=== PATIENT | female | born 1975 | race Caucasian/White ===

== ENCOUNTER 2025-04-16 14:24 | Outpatient (REF) | payer MEDICARE, MEDICAID, SELFPAY ==
[2025-04-16 16:48] LABS: Alanine Aminotransferase 16 U/L (0-31); Albumin Level 4.8 g/dL (3.5-5.0); Alkaline Phosphatase 93 U/L (39-117); Anion Gap 15 (12-20); Aspartate Amino Transferase 17 U/L (5-31); Blood Urea Nitrogen 21 mg/dL (9-16); Calcium 9.6 mg/dL (8.4-10.2); Carbon Dioxide 23 mmol/L (22-29); Chloride 107 mmol/L (96-108); Estimated Glomerular Filt Rate > 60; Potassium 3.6 mmol/L (3.3-5.1); Sodium 141 mmol/L (135-145); Total Protein 7.3 g/dL (6.5-8.0)
[2025-04-17 18:44] LABS: Lyme Abs Screen <0.90 index
[2025-04-23 15:59] LABS: Anti Nuclear Antibody Pattern Nuclear, Homogeneous; Anti Nuclear Antibody Screen POSITIVE (NEGATIVE); Anti Nuclear Antibody Titer 1:80 titer
== END 2025-04-16 14:25 | disposition home or self-care (01) ==
LOC: HO.LAB 14:24
PROVIDERS: PCP Internal Medicine; Visit Provider Psychiatry & Neurology Neurology
DX: G43.019 Migraine without aura, intractable, without status migrainosus (principal); G40.909 Epilepsy, unspecified, not intractable, without status epilepticus; F32.A Depression, unspecified; F41.9 Anxiety disorder, unspecified; M79.18 Myalgia, other site; Z79.899 Other long term (current) drug therapy
CPT/HCPCS: 36415; 80048; 80076; 85652; 86038; 86039; 86431; 86617; 86618; 99202

== ENCOUNTER 2025-04-16 14:24 | Outpatient (AMB) | payer MEDICARE, MEDICAID, SELFPAY ==
--- OUTSIDE RECORDS SUMMARY | 2025-01-25 10:40 | XMS_ITS ---
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 :1975 A ge:49 Y S ex:Female Date:01/25/2025 Address:[address] [place] [address] [id number] Pcp:STAR CROW DO Subjective: * Chief Complaints: * 1 . 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 * Medical History: U nspecified abnormal cytological findings in specimens from cervix uteri, Major depressive disorder, single episode, unspecified, Fibromyalgia, Atypical squamous cells of undetermined significance on cytologic smear of cervix (ASC-US), Cervical high risk human papillomavirus (HPV) DNA test positive, Female infertility, unspecified, Secondary amenorrhea, Other specified irregular menstruation, Unspecified menopausal and perimenopausal disorder, Menopausal and female climacteric states, Hyperprolactinemia. 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 S [...] Electronic signature of Max Ghosh MD on 04/16/2025 at 03:06 PM EDT Sign off status: Pending * Appointment Provider: Joyce Ghosh M.D. Date: 0 01/25/2025 Generated for Tony johnson/Kathe/Alexander on: 0 04/16/2025 03:06 PM EDT
--- NOTE | 2025-04-16 14:26 | A.OFFVIS_ITS ---
Vital Signs 04/16/25 14:42 Height 5 ft 1 in Weight 150 lb BMI 28.3 Intake Visit Reasons: Migraine Allergies No Known Allergies Allergy (Verified 04/11/25 08:59) Medication List - Last Reconciled 04/16/25 by Negrito Anders MD dextroamphetamine-amphetamine 20 mg (Adderall) 20 mg PO BID lorazepam 0.5 - 1 mg PO TID PRN tizanidine (Zanaflex) 4 mg PO BEDTIME PRN HPI Comments Details: 49 years old right-handed woman with chronic depression and anxiety disorder, diagnosis of fibromyalgia and myofascial pain syndrome, chronic fatigue, and chronic migraine headaches treated with Botox injection. She said that she had tried multiple type of medical treatments in the past and they did not work. For long many years she has been using this treatment and stated that this has significantly improved her quality of life. Headaches still happened few times a month and lasted for few hours at a time. Pain was in front or in the back or all around the head, pressure type, associated with nausea and sometime with vomiting. Her botox was due now. She also reported having episodes when suddenly she would lose strength in her legs and speech would become slurred. She would lose control of her hands and lose feeling of ground underneath her. [facility] Medical History (Updated 04/16/25 @ 15:01 by Negrito Anders MD) Trapezius muscle spasm Chronic fatigue Impaired fasting glucose Rosacea Fibromyalgia Chronic depression Migraine Review of Systems Const Details: Constitutional:?No fever, chills, weight loss, or night sweats. Difficulty sleeping and teeth grinding. Fatigue. HEENT:?No hearing loss, nasal congestion, sore throat. Cardiovascular:?No chest pain, palpitations, orthopnea, PND, or leg swelling. Respiratory:?No cough, shortness of breath, wheezing, or hemoptysis. Gastrointestinal:?No nausea, vomiting, abdominal pain, diarrhea, or constipation. Genitourinary:?No dysuria, frequency, incontinence, or hematuria. Musculoskeletal:?c/o muscle and joint pain and swelling Neurological:?c/o headaches and blurred vision Psychiatric:?c/o nervousness, depression, and stress Endocrine:?No heat/cold intolerance, polydipsia, polyuria, or hair/skin changes. Hematologic/Lymphatic:?No easy bruising, bleeding, or lymphadenopathy. Integumentary (Skin):?No rash, lesions, itching, or color changes. Allergic/Immunologic:?No seasonal allergies, hives, or recurrent infections. Physical Exam Neuro Other: Mental Status: Alert and oriented to person, place, and time. Normal attention. Normal spontaneous speech, fluency, and comprehension. No obvious issues with mood and memory. Affect is appropriate. Cranial Nerves: CN II: Visual ley full to confrontation, visual acuity intact. CN III, IV, : Pupils equal, round, reactive to light and accommodation. Extraocular movements are normal. CN V: Facial sensation is normal. CN VII: Facial movements symmetrical. CN VIII: Hearing intact to bedside conversation is normal. CN IX, X: Palate elevates symmetrically. CN XI: Shoulder shrug and head turn symmetrical. CN XII: Tongue midline without atrophy or fasciculations. Motor: Bulk and tone normal in all extremities. No significant muscle weakness in arms and legs. No drift. Reflexes: Deep tendon reflexes 2+ and symmetric. Plantar response down-going bilaterally. Coordination: Uysrrn-yw-jjok and jbyj-wo-hwwh testing normal. No dysmetria. Gait and Station: No obvious gait abnormality. No ataxia or instability. Extrapyramidal: Full facial expressions and blinking. No rigidity. Movements are appropriate with no tremor or abnormality. Speech: Normal; no dysarthria or tremor. Assessment & Plan Assessment & Plan (1) Migraine without aura: Comment: Meds tried: Amitriptyline, gabapentin, venlafaxine, Topiramate, Sumatriptan Code(s): G43.009 - Migraine without aura, not intractable, without status migrainosus Category: Medical Qualifiers: Status migrainosus presence: without status migrainosus Intractability: intractable Qualified Code(s): G43.019 - Migraine without aura, intractable, without status migrainosus (2) Seizure disorder: Code(s): G40.909 - Epilepsy, unspecified, not intractable, without status epilepticus Category: Medical Plan Impression: a: Chronic intractable migraine w/o aura headaches treated with Botox b: Possible seizure do Rec: a: Botox 200 IU every 3 m. We can try to obtain this but if a PA is required, I would need her past records to make a case of this treatment b: EEG Orders: Orders EEG electroencephalogram Today G40.909 - Epilepsy, unspecified, not intractable, without status epilepticus Rheumatoid Factor Today G40.909 - Epilepsy, unspecified, not intractable, without status epilepticus Basic Metabolic Panel Today G43.019 - Migraine without aura, intractable, without status migrainosus AMB Botulinum toxin Injection Today G43.019 - Migraine without aura, intractable, without status migrainosus Erythrocyte Sedimentation Rate Today G40.909 - Epilepsy, unspecified, not intractable, without status epilepticus JOSEFINA Reflex Titer and Pattern Today G43.019 - Migraine without aura, intractable, without status migrainosus Liver Panel Today G40.909 - Epilepsy, unspecified, not intractable, without status epilepticus, G43.019 - Migraine without aura, intractable, without status migrainosus Lyme IgG/IgM w/reflex to WB Today G40.909 - Epilepsy, unspecified, not intractable, without status epilepticus, G43.019 - Migraine without aura, intractable, without status migrainosus Medications: New onabotulinumtoxinA 200 units IM .every 3 months 1 ea 0RF migraine headache G43.019 - Migraine without aura, intractable, without status migrainosus Coding Level of Care Code Tele New Pt Level 5 (34342) Diagnoses Intractable migraine without aura and without status migrainosus G43.019 Status migrainosus presence: without status migrainosus Intractability: intractable Seizure disorder G40.90
[2025-04-16 14:42] VITALS: BMI 28.3
--- OUTSIDE RECORDS SUMMARY | 2025-04-16 15:06 | XMS_ITS | Data Portability ---
Author Organization [facility], [facility] Address [address] [facility] [place] [address] Care Team Providers Care Tile Professional Name Role Phone STAR CROW Referring Provider Unavailable STAR CROW Primary Care Provider Assessment Encounter Date Assessment Date Assessment LastModified by Organization Details LastModified Time 08/10/2024 08/10/2024 IMPRESSION: Migraine and significant shoulder tension, both significantly helped by Botox. >>>>>>>>>>>>Novem 2023 Medications per patient: Clonazepam 1 mg, tizanidine 4 mg, duloxetine 60 mg, Adderall 15 mg, eyedrops, magnesium, Advil as needed, vitamin for nutrition. She would like me to take over Botox injection administration. I will be happy to do this. Chart note from December is sufficiently clear so that I should be able to roughly recreate the injection amount and pattern that has provided benefit. This may take two or three trials to optimize. She understands as it did take several trials to optimize as she switched from her first neurologist to her most recent neurologist who just retired. She would also like me to take over her tizanidine that was prescribed by her previous neurologist. As Botox has been wearing off, the tizanidine 4 mg has not been helping sufficiently. She wonders whether she can use 8 mg. This is certainly within the maximum single dose limit, but with every increase of tizanidine, there should be rechecking of liver function. She mentions that her liver function was fine at a recent check by primary care. I suggest that I would take over the tizanidine prescription from her previous neurologist and allow 8 mg at a single dose if she agrees to work with primary care to have liver function rechecked. She agrees to this. >>>>>>>>>>>> PLAN Nati Zambrano August 10, 2024 Tizanidine: One or 2 tablets every 8 hours, maximum 4 tablets/day Follow-up for Botox: 200 units for painful muscle spasm triggering migraine. [email or web address] Not available 08/10/2024 18:15:54 12/05/2024 12/05/2024 IMPRESSION: Migraine and significant shoulder tension, both significantly helped by Botox. -- December 05, 2024 Botox #1 benefit: Three relatively short migraines per month; migraine breakthrough medication not optimized. >>>>>>>>>>>>December 05, 2024 I offered sample of Nurtec for migraine breakthrough. If this works, she will bring the name of the second and/or third triptan she tried after failure of sumatriptan. With at least two failed triptans, Nurtec is often approved by insurance. I offered physical therapy to advise pathway for help with her shoulder stiffness as Botox and even Botox increase by previous neurologist has not helped that, despite helping her headaches. She accepted. >>>>>>>>>>>>Novem 2023 Medications per patient, August 10, 2024 : Clonazepam 1 mg, tizanidine 4 mg, duloxetine 60 mg, Adderall 15 mg, eyedrops, magnesium, Advil as needed, vitamin for nutrition. She would like me to take over Botox injection administration. I will be happy to do this. Chart note from December is sufficiently clear so that I should be able to roughly recreate the injection amount and pattern that has provided benefit. This may take two or three trials to optimize. She understands as it did take several trials to optimize as she switched from her first neurologist to her most recent neurologist who just retired. She would also like me to take over her tizanidine that was prescribed by her previous neurologist. As Botox has been wearing off, the tizanidine 4 mg has not been helping sufficiently. She wonders whether she can use 8 mg. This is certainly within the maximum single dose limit, but with every increase of tizanidine, there should be rechecking of liver function. She mentions that her liver function was fine at a recent check by primary care. I suggest that I would take over the tizanidine prescription from her previous neurologist and allow 8 mg at a single dose if she agrees to work with primary care to have liver function rechecked. She agrees to this. >>>>>>>>>>>> PLAN Nati Zambrano December 05, 2024 Physical therapy for bilateral shoulder stiffness residual after Botox injections which have helped her migraines significantly, but has not helped the stiffness which worsens a little for 3 weeks after Botox but which is there prominently anyway Botox without botox. Botox increase has not helped. There is also fibromyalgia. Advise please whether stiffness relates to a myofascial trigger point not being injected (see phot in chart on locations), to fibromyalgia, or to another muscular issue. Molly Henley MBA, PT [address] [address] [email or web address] We will send a referral to the physical therapist for physical therapy. It is your responsibility to make the initial phone call to the above number to set up an initial appointment CONTINUE NEEDED: Tizanidine: One or 2 tablets every 8 hours, maximum 4 tablets/day Follow-up for Botox: 200 units for painful muscle spasm triggering migraine, 91 days pfter previous. [email or web address] Not available 12/05/2024 17:03:55 Plan of Treatment Reminders Order Date Submit Date Provider Last Modified By Organization Details Last Modified Time Details Appointments FOLLOW UP EXT 2024 01:30P Hannah Parks MD PhD Not available Not available Not available BOTOX 2024 01:00P Hannah Parks MD PhD Not available Not available Not available Lab None recorded. Referral neurologi c physical therapist referral - Physical therapy for bilateral shoulder stiffness residual after Botox injection s which have helped her migraines significa ntly, but has not helped the stiffness which worsens a little for 3 weeks after Botox but which is there prominent ly anyway Botox without botox. Botox increase has not helped. There is also fibromyal corinne. Advise please whether stiffness relates to a myofascia l trigger point not being injected (see phot in chart on locations ), to fibromyal corinne, or to another muscular issue. 2024 025 LAURENCE Barnes Lory PT, [address] [place], [address], 01/02/2025 04:18:13 Procedures None recorded. Surgeries None recorded. Imaging None recorded. Medication Orders tizanidin e 4 mg tablet 2023 024 [id number], [address] [place], [address], 08/10/2024 14:00:54 Patient TargetsNo targets recorded. Patient Instructions Encounter Date Encounter Id Patient Instructions Last Modified By Organization Details Last Modified Time 08/10/2024 [id number] Discussion acros s issues of diagnoses and management and same day associated chart review and management greater than 50% greater than 60 minutes [email or web address] Not available 08/10/2024 14:14:58 12/05/2024 [id number] Discussion acros s issues of diagnoses and management and same day associated chart review and management greater than 50% greater than 30 minutes Chronic condition with exacerbation; prescription medication management [email or web address] Not available 12/05/2024 17:04:13 Reason for Referral Physical therapy for rosamaria conrad shoulder stiffness residual after Botox injections which have helped her migraines significantly, but has not helped the stiffness which worsens a little for 3 weeks after Botox but which is there prominently anyway Botox without botox. Botox increase has not helped. There is also fibromyalgia. Advise please whether stiffness relates to a myofascial trigger point not being injected (see phot in chart on locations), to fibromyalgia, or to another muscular issue. Referring Physician: Perico Parks, Neurology, Encounter Date: 12/05/2024 Procedures Surgical History Date Name Laterality Status Provider Name and Address Organization Details Recorded Time botulinum injection completed Perico Parks MD [address] [place] [address] [place], [id number], [facility] 01/03/2025 14:52:26 DATA REVIEW completed Perico Parks MD [address] [place] [address] [place], [address], [facility] 12/05/2024 16:39:53 5 botulinum injection completed Perico Parks MD [address] [place] [address] [place], [address], [facility] 10/04/2024 11:17:02 4 DATA REVIEW completed Perico Parks MD [address] [place] [address] [place], [address], [facility] 08/10/2024 14:11:16 Imaging Results None recorded. Procedure Notes None recorded. Medical Equipment None Reported. Allergies No known drug allergies Medications Name Sig Start Date Stop Date Status Note LastModified by Organization Details LastModified Time tizanidine 4 mg tablet TAKE 1 TABLET OR 2 TABLETS EVERY 8 HOURS, MAXIMUM 4 TABLETS/DA Y active Not Available Not Available No t Available clonazepam 1 mg tablet TAKE 1 TABLET BY MOUTH 3 TIMES A DAY NEEDED - *REPLACING LORAZEPAM active Not Available Not Available No t Available bupropion HCl SR 100 mg tablet,12 hr sustained-rel ease TAKE 1 TABLET BY MOUTH EVERY DAY IN THE MORNING active Not Available Not Available No t Available prednisolone acetate 1 % eye drops,suspens ion INSTILL 1 DROP INTO BOTH EYES FOUR TIMES A DAY SHAKE WELL active Not Available Not Available N ot Available dextroampheta mine-amphetam ine 15 mg tablet TAKE 1 TABLET BY MOUTH TWICE A DAY active Not Available Not Available No t Available norethindrone acetate 5 mg tablet TAKE 1 TABLET BY MOUTH EVERY DAY FOR 10 DAYS EVERY 3 MONTHS active Not Available Not Available No t Available lorazepam 1 mg tablet TAKE 1/2-1 TABLET 3 TIMES DAILY NEEDED active Not Available Not Available No t Available hydrocortison e 2.5 % topical ointment APPLY DAILY TO SKIN EVERY DAY FOR 14 DAYS active Not Available Not Available No t Available ondansetron 4 mg disintegratin g tablet TAKE 1 TABLET BY MOUTH EVERY 6 HOURS NEEDED FOR NAUSEA AND VOMITING FOR 5 DAYS active Not Available Not Available N ot Available naproxen 500 mg tablet TAKE 1 TABLET BY MOUTH EVERY 12 HOURS WITH FOOD OR MILK NEEDED FOR 14 DAYS active Not Available Not Available No t Available bupropion HCl SR 200 mg tablet,12 hr sustained-rel ease TAKE 1 TABLET BY MOUTH EVERY MORNING active Not Available Not Available No t Available bupropion HCl XL 150 mg 24 hr tablet, extended release TAKE 1 TABLET BY MOUTH EVERY DAY IN THE MORNING *INCREASED DOSE* active Not Available Not Available No t Available nitrofurantoi n monohydrate/m acrocrystals 100 mg capsule TAKE 1 CAPSULE BY MOUTH EVERY 12 HOURS WITH A MEAL/FOOD FOR 5 DAYS. active Not Available Not Available No t Available duloxetine 20 mg capsule,delay ed release TAKE 2 CAPSULES BY MOUTH EVERY MORNING active Not Available Not Available No t Available duloxetine 60 mg capsule,delay ed release TAKE 1 CAPSULE BY MOUTH EVERY MORNING active Not Available Not Available No t Available tizanidine active Not Available Not Av ailable Not Available Advil active Not Available Not Availa ble Not Available clonazepam active Not Available Not Av ailable Not Available multivitamin active Not Available Not Available Not Available Adderall active Not Available Not Avai lable Not Available duloxetine active Not Available Not Av ailable Not Available magnesium glycinate active Not Available Not Available No t Available Xiidra 5 % eye drops in a dropperette INSTILL 1 DROP INTO BOTH EYES TWICE A DAY active Not Available Not Available No t Available Xiidra active Not Available Not Availa ble Not Available Vitals Date Recorded Body height Body mass index (BMI) Body weight Respiratory rate Provider Name and Address Organization Details Last Updated DateTime 08/10/2024 152.4 cm 30.3 kg/m2 11778.82 g 12 /min [place] Culver [facility] 08/10/2024 13:19:20 Social History Question Answer Notes LastModified by [employer] Details LastModified Time Tobacco Smoking Status Current Every Day Smoker [place] [facility] 08/10/2024 13:22:30 What Is Your Level Of Caffeine Consumption? Occasional Information not available 08/10/2024 What Is The Highest Grade Or Level Of School You Have Completed Or The Highest Degree You Have Received? [id number] Information not available 08/10/2024 Which Of Your Hands Is Dominant? Right Information not available 08/10/2024 How Much Tobacco Do You Smoke? 0.5 PPD Information not available 08/10/2024 Sex: Unknown Functional Status Question Answer Note LastModified by [employer] Details LastModified Time What is your level of alcohol consumption? Occasional Information not available 08/10/2024 Mental Status None recorded. Family History Relationship Description Onset Age of this Age Resolved Age Notes LastModified by Organization Details LastModified Time Unspecified Relation Alzheimer's disease Not available 2023 13:19:35 Unspecified Relation Diabetes mellitus Not available 2023 13:19:40 Medical History Condition Response Claustrophobia N Head Trauma/Injury N Hospitalizations N High Blood Pressure or Hypertension N Thyroid Problems N Depression Y Brain Tumors N Lung Disease N COPD or emphysema N Encephalitis N PTSD N Vitamin B12 deficiency N Heart Attack ([place]) N Spine Problems N Obstructive Sleep Apnea N Alcoholism N Diabetes N Autoimmune disease N Bleeding Disorder N Arthritis N Cerebral Palsy N Tuberculosis N Developmental Problems N Neck Problems N Cancer N Back Problems N Stroke N Asthma N Heartburn, acid reflux, GERD N Vitamin D Deficiency N Epilepsy/Seizures N Bipolar Disorder N Sleep Disorder N Aneurysm N Hepatitis N Liver Disease N Heart Disease N Fibromyalgia Y Headaches Y High Cholesterol or Hyperlipidemia N Osteoporosis N Kidney Disease N Gynecological HistoryNo gynecological history recorded. Obstetrics History GPAL:G 0 P 0 0 0 0 Past Encounters Encounter ID Performer Location Encounter Start Date Encounter Closed Date Diagnosis/Indication Diagnosis SNOMED-CT Code Diagnosis ICD10 Code Diagnosis Note [id number] Perico Parks MD [facility] [address] [place] [address] [place] [address] 08/10/2024 12:53:21 08/15/2024 15:16:08 Migraine with aura 1685383 G43.109 Dystonia 06330538 G24.3 Primary to rsion dystonia 95322937 G24.1 Bilateral hemifacial spasm 1785134276 5703936 G51.33 [id number] Perico Parks MD [facility] [address] [place] [address] [place] [address] 10/04/2024 09:57:24 10/04/2024 11:53:31 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 Dystonia 94253309 G24.3 Facial spasm 68898380 G5 1.33 [id number] Perico Parks MD [facility] [address] [place] [address] [place] [address] 12/05/2024 16:10:25 12/05/2024 17:31:34 Migraine with aura 9561227 G43.109 Dystonia 71550368 G24.3 Primary to rsion dystonia 17873196 G24.1 Bilateral hemifacial spasm 0065916949 8558952 G51.33 [id number] Perico Parks MD [facility] [address] [place] [address] [place] [address] 01/03/2025 13:54:50 01/03/2025 15:39:21 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 Dystonia 91464019 G24.3 Facial spasm 32212650 G5 1.33 Health Concerns Section Related Observation LastModified by Organization Detai ls LastModified Time None Recorded Concern Status LastModified by Organization Details LastModified Time None Recorded Advance Directives Directive None Recorded Payers Insurance Date Sequence Insurance Name Policy Number Policy Lyles Covered Member ID Lyles Member ID Guarantor Name 03/18/2025 1 [place] [employer] Nati Zambrano [id number] Nati Zambrano 03/19/2025 2 [place] [facility] Nati Zambrano [id number] Nati Zambrano OBGyn Episode No OBEpisode recorded.
--- OUTSIDE RECORDS SUMMARY | 2025-04-16 15:06 | XMS_ITS | Clinical Summary ---
Author Organization [address] [facility] Address [address] [place] [address] Phone Care Team Providers Care Food Sales Clerk Name Role Phone Zion Pizano DO Primary Care Provider [phone] Allergies No known active allergies Medications clonazePAM (KlonoPIN) 1 mg tablet TAKE 1 TABLET BY MOUTH 3 TIMES A DAY NEEDED - *REPLACING LORAZEPAM 5 Active amphetamine-dext roamphetamine (ADDERALL) 15 mg tablet Take 1 tablet (15 mg total) by mouth 2 (two) times a day. Max Daily Amount: 30 mg 5 Active tiZANidine (ZANAFLEX) 4 mg tablet TAKE 1 TABLET OR 2 TABLETS EVERY 8 HOURS, MAXIMUM 4 TABLETS/DAY 4 Active Xiidra 5 % dropperette Administer 1 drop into both eyes 2 (two) times a day. 4 Active Encounters Date Type Department Care Team Description 03/05/2025 3:45 PM EDT Consult General Surgery [facility] [address] [place] [address] Flynn Hdz, DO Supraclavicular mass (Primary Dx); Ganglion cyst; Other bursal cyst, left elbow from Last 3 Months Social History Tobacco Use Types Packs/Day Years Used Date Smoking Tobacco: Never Assessed Comments Unknown Sex and Gender Information Value Date Recorded Sex Assigned at Not on file Legal Sex Female 11:39 PM EST Gender Identity Not on file Sexual Orientation Not on file Last Filed Vital Signs Vital Sign Reading Time Taken Comments Blood Pressure 137/90 03/05/2025 3:49 PM EDT Pulse 111 03/05/2025 3:49 PM EDT Temperature - - Respiratory Rate - - Oxygen Saturation - - Inhaled Oxygen Concentration - - Weight 70.3 kg (155 lb) 03/05/2025 3:49 PM EDT Height 154.9 cm (5' 1 ) 03/05/2025 3:49 PM EDT Body Mass Index 29.29 03/05/2025 3:49 PM EDT Plan of Treatment Upcoming Encounters Date Type Department Care Team (Late st Contact Info) Description 04/17/2025 3:30 PM EDT Consult Orthopedic Surgery - [place] [address] [place] [address] Lisa Andrew PA [address] [place] [address] Health Maintenance Due Date Last Done Comments Breast Cancer Screening 1974 DTaP,Tdap,and Td Vaccines (1 - Tdap) 1993 Hepatitis B Vaccines (1 of 3 - 19+ 3-dose series) 1993 Cervical Cancer Screening: P ap Smear 1995 COVID-19 Vaccine ( - 2023-2 5 season) 2024 Pneumococcal Vaccine: 50+ Ye ars (1 of 1 - PCV) 2024 Zoster Vaccines (1 of 2) 2024 Colorectal Cancer Screening: Colonoscopy 07/25/2024 HIV Screening 07/25/2024 Hepatitis C Screening 07/25/2024 Medicare Annual Wellness Visit 07/25/2024 Social Influencers of Health Screening 07/25/2024 Depression Screening 09/20/2024 Influenza Vaccine (#1) 2025 HIB Vaccines Aged Out No longer eligi ble based on patient's age to complete this topic HPV Vaccines Aged Out No longer eligi ble based on patient's age to complete this topic Hepatitis A Vaccines Aged Out No long er eligible based on patient's age to complete this topic IPV Vaccines Aged Out No longer eligi ble based on patient's age to complete this topic MMR Vaccines Aged Out No longer eligi ble based on patient's age to complete this topic Meningococcal ACWY Vaccine Aged Out N o longer eligible based on patient's age to complete this topic Meningococcal B Vaccine Aged Out No l onger eligible based on patient's age to complete this topic RSV Immunization Patients Un erick 20 months Aged Out No longer eligible b ased on patient's age to complete this topic Varicella Vaccines Aged Out No longer eligible based on patient's age to complete this topic Insurance MEDICARE MEDICAID - [place] Care Teams Food Sales Clerk Relationship Specialty Start Date End Date Zion Pizano DO [address] [place] [phone] PCP - General Internal Medicine 07/25/24
== END 2025-04-16 15:15 | disposition home or self-care (01) ==
LOC: HO.HSM 14:24
PROVIDERS: PCP Internal Medicine; Visit Provider Psychiatry & Neurology Neurology
DX: G43.019 Migraine without aura, intractable, without status migrainosus (principal); G40.909 Epilepsy, unspecified, not intractable, without status epilepticus
CPT/HCPCS: 99204

== ENCOUNTER 2025-06-04 14:50 | Outpatient (REF) | payer MEDICARE, MEDICAID, SELFPAY ==
--- OUTSIDE RECORDS SUMMARY | 2025-01-25 10:40 | XMS_ITS ---
Author Organization [facility] [email or web address] [facility] Address [address] [place] [address] Care Team Providers Care Cold Header Name Role Phone STAR CROW DO Primary Care Provider Jaja Merida Unavailable [phone] REASON FOR VISIT Annual MANAGER ZONE Physical Social History Tobacco Use: Social History Observation Description Date Details (start date - stop date) Current Smoker NA - NA Sexual History Question Answer Notes Had sex in the past 12 months (vaginal, oral, or anal)? No AUDIT-C (Standard) Question Answer Notes Did you have a drink contain ing alcohol in the past year? Yes How often did you have a dri nk containing alcohol in the past year? Monthly or less (1 point) How many drinks did you have on a typical day when you were drinking in the past year? 1 or 2 drinks (0 point) How often did you have six o r more drinks on one occasion in the past year? Never (0 point) Points 1 Interpretation Negative Tobacco Control (Standard) Question Answer Notes Tobacco use: Current smoker How often do you smoke cigarettes? Every day How many cigarettes a day do you smoke? 6-10 Encounters Encounter Location Date Provider Diagnosis [email or web address] [address] [place] [address] 01/25/2025 Jaja Ghosh Plan Of Treatment Next Appt Details Provider Name:Jaja avalos, 07/05/2025 02:20:00 PM, [address], [facility] [address], [place], [address], Progress Notes * TEOFILO TOBIASDOB:1974 (49 yo F)Acc No.[id number]:01/25/2025 PROGRESS NOTES Patient: TEOFILO SINGH Appointment Provider: Joyce Ghosh M.D. :1975 A ge:49 Y S ex:Female Date:01/25/2025 Address:[address] [place] [address] [id number] Pcp:STAR CROW DO Subjective: * Chief Complaints: * 1 . Annual MANAGER ZONE Physical. * Medical History: U nspecified abnormal cytological findings in specimens from cervix uteri, Major depressive disorder, single episode, unspecified, Fibromyalgia, Atypical squamous cells of undetermined significance on cytologic smear of cervix (ASC-US), Cervical high risk human papillomavirus (HPV) DNA test positive, Female infertility, unspecified, Secondary amenorrhea, Other specified irregular menstruation, Unspecified menopausal and perimenopausal disorder, Menopausal and female climacteric states, Hyperprolactinemia. 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 S exual activity n ot currently sexually active. L ast Pap Smear: NIL, NEG HPV, 10/22/17 NIL, NEG HRHPV, 09/07/14, NEG HRHPV. M ammogram: < 50% density, 06/01/17, < 50% density, Right Breast Biopsy - Benign. A bnormal Pap Smear: H x of ASCUS, Pos HPV in 2008. L MP and menses . C olonoscopy 2 016. * OB History: T otal pregnancies 0 . * Social History: T obacco Use: T obacco Control (Standard) T obacco use: C urrent smoker H ow often do you smoke cigarettes? E very day H ow many cigarettes a day do you smoke? 6 -10 S exual History: S exual History H ad sex in the past 12 months (vaginal, oral, or anal)? N o Details of Sexual History A re you sexually active? N o D rugs/Alcohol: D rugs H ave you used drugs other than those for medical reasons in the past 12 months? N o M iscellaneous: C hildren: no. Domestic violence: no. Exercise: no. Home smoke detector use: yes. Living with: significant other. Marital status: single. Natural support system: yes. Occupation: Unemployed. Sexually active: no. D rug/Alcohol: A KARINE-C (Standard) D id you have a drink containing alcohol in the past year? Y es H ow often did you have a drink containing alcohol in the past year? M onthly or less (1 point) H ow many drinks did you have on a typical day when you were drinking in the past year? 1 or 2 drinks (0 point) H ow often did you have six or more drinks on one occasion in the past year? N ever (0 point) P oints 1 I nterpretation N egative Objective: * Vitals: Assessment: Plan: * Treatment: * Images: Billing Information: * Visit Code: * Procedure Codes: * Electronic signature of Max Ghosh MD on 06/04/2025 at 08:16 PM EDT Sign off status: Pending * Appointment Provider: Joyce Ghosh M.D. Date: 0 01/25/2025 Generated for Tony johnson/Kathe/Alexander on: 0 06/04/2025 08:16 PM EDT
--- NOTE | 2025-06-04 16:29 | EEG_ITS ---
Roomed Performed:?402 Reason: Epilepsy History: episodes when suddenly she would lose strength in her legs and speech would become slurred Medication: dextroamphetamine-amphetamine, lorazepam, tizanidine Technical description:? Photic stimulation: Completed Hyperventilation:?Completed Behavioral state: relaxed State of Consciousness: awake Skull defect: None Sedation: None Handedness: Right Duration of study:? 30min ? ? Description: This is a 16 channel EEG with an EKG lead. Patient is reported awake during the tracing. Background EEG rhythm is low amplitude fast with no obvious asymmetry or paroxysmal tendency. Photic stimulation does not produce any significant abnormality. Hyperventilation is similarly unremarkable. Cardiac lead does not reveal any significant abnormality. No sharp wave spikes or paroxysmal tendency noted. Impression: Unremarkable EEG. MTDD
--- OUTSIDE RECORDS SUMMARY | 2025-06-04 20:16 | XMS_ITS | Clinical Summary ---
Author Organization [facility] Address [address] [place] [address] Phone Care Team Providers Care Mining Consultant Name Role Phone Zion Pizano DO Primary Care Provider [phone] Allergies No known active allergies Medications clonazePAM [...] 2 (two) times a day. 4 Active Active Problems Problem Noted Date Diagnosed Date Fibromyalgia 05/29/2025 Chronic migraine without aur a without status migrainosus, not intractable 05/29/2025 Elbow mass, left 05/29/2025 Encounters Date Type Department Care Team Description 05/29/2025 3:00 PM EDT Office Visit Orthopedic Surgery [facility] [address] [place] [address] Mari Marquez MD Elbow mass, left (Primary Dx) 04/23/2025 9:48 AM EDT - 04/23/2025 11:59 PM EDT Hospital Encounter [facility] Ultrasound [address] [place] [address] Supraclavicular mass Discharge Disposition: Home or Self Care 04/23/2025 9:48 AM EDT - 04/23/2025 11:59 PM EDT Hospital Encounter [facility] Ultrasound [address] [place] [address] Ganglion cyst; Other bursal cyst, left elbow Discharge Disposition: Home or Self Care 04/17/2025 3:30 PM EDT Consult Orthopedic Surgery - [place] [address] [place] [address] Lisa Andrew PA Ganglion cyst 03/05/2025 3:45 PM EDT Consult General Surgery - [place] [address] [place] [address] Flynn Hdz, Supraclavicular mass (Primary Dx); Ganglion cyst; Other bursal cyst, left elbow from Last 3 Months Social History Tobacco Use Types Packs/Day Years Used Date Smoking Tobacco: Some Days Cigarettes 0.5 6.7 Started: 2018 Smokeless Tobacco: Never Tobacco Cessation:Ready to Q uit: Not Asked; Counseling Given: Not Answered Alcohol Use Standard Drinks/Week Comments Never 0 (1 standard drink = 0.6 oz pur e alcohol) Comments Unknown Sex and Gender Information Value Date Recorded Sex Assigned at Not on file Legal Sex Female 11:39 PM EST Gender Identity Not on file Sexual Orientation Not on file Obstetrics History Last Filed Vital Signs Vital Sign Reading Time Taken Comments Blood Pressure 137/90 03/05/2025 3:49 PM EDT Pulse 111 03/05/2025 3:49 PM EDT Temperature - - Respiratory Rate - - Oxygen Saturation - - Inhaled Oxygen Concentration - - Weight 70.3 kg (155 lb) 05/29/2025 3:09 PM EDT Height 154.9 cm (5' 1 ) 05/29/2025 3:09 PM EDT Body Mass Index 29.29 05/29/2025 3:09 PM EDT Plan of Treatment Upcoming Encounters Date Type Department Care Team (Latest Contact Info) Description 07/05/2025 1:00 PM EDT Hospital Encounter [facility] Main OR [address] [place] [phone] Mari Marquez MD [address] [place] [phone] 07/05/2025 1:00 PM EDT - 07/05/2025 2:[address] [facility] Main OR [address] [place] [address] Mari Marquez MD [address] [place] [phone] EXCISION MASS LEFT PROXIMAL ULNA [07291 (CPT )] 07/16/2025 1:15 PM EDT Office Visit Orthopedic Surgery [facility] [address] [place] [address] Lisa Andrew PA [address] [place] [phone] Scheduled Procedures Name Priority Associated Diagnoses Date/Ti me EXCISION MASS Elbow mass, left 07/05/2025 1:00 PM EDT Health Maintenance Due Date Last Done Comments Breast Cancer Screening 1974 DTaP,Tdap,and Td Vaccines (1 - Tdap) 1993 Hepatitis B Vaccines (1 of 3 - 19+ 3-dose series) 1993 Pneumococcal Vaccine: 50+ Ye ars (1 of 2 - PCV) 1993 Cervical Cancer Screening: P ap Smear 1995 Zoster Vaccines (1 of 2) 2024 Cholesterol Screening (Lipid Panel) 07/25/2024 Colorectal Cancer Screening: Colonoscopy 07/25/2024 HIV Screening 07/25/2024 Hepatitis C Screening 07/25/2024 Medicare Annual Wellness Visit 07/25/2024 Social Influencers of Health Screening 07/25/2024 Depression Screening 09/20/2024 COVID-19 Vaccine ( - 2023-2 5 season) 2025 Influenza Vaccine (#1) 2025 HIB Vaccines Aged [...] on patient's age to complete this topic Procedures Procedure Name Priority Date/Time Associated Diagnosis Comments US HEAD NECK SOFT TISSUE Routine 04/23/2025 10:12 AM EDT Supraclavicular mass US EXTREMITY NONVASCULAR LIMITED LEFT Routine 04/23/2025 10:11 AM EDT Ganglion cyst Other bursal cyst, left elbow from Last 3 Months Results * US Head Neck Soft Tissue (04/23/2025 10:12 AM EDT) Anatomical Region Laterality Modality Head and Neck Ultrasound 05/01/2025 8:11 AM EDT Impressions 05/01/2025 8:14 AM EDT Nonspecific altered echotexture without a discrete measurable mass. The area should be managed on the basis of the physical exam and history. This study does not exclude an aggressive process. -------- FINAL REPORT -------- Dictated By: Wily Ortiz Dictated Date: 05/01/2025 08:11 ET Assigned Physician: Wily Ortiz Reviewed and Electronically Signed By: Wily Ortiz Signed Date: 05/01/2025 08:14 ET Workstation ID: [id number] Transcribed By: Self Edit Transcribed Date: 05/01/2025 08:11 ET Narrative 05/01/2025 8:14 AM EDT EXAMINATION: US , SOFT TISSUES RIGHT SUPRACLAVICULAR REGION CLINICAL INFORMATION: Mass in the right supraclavicular region COMPARISON: None. TECHNIQUE: High-frequency linear transducer examination with attention to the area of clinical concern The area of clinical concern in the right supraclavicular region was examined with a high-frequency linear transducer. An area of palpable concern was targeted. FINDINGS: QUALITY: Adequate There is a subtle area of altered echotexture in the superficial tissues which attenuates sound and limits assessment of the deeper tissues. This appears to disrupt the deep fascial plane of the skin and precludes assessment of the deep muscular fascial planes or any underlying bony structures. This is difficult to quantify. Procedure Note Wily Ortiz MD - 05/01/2025 EXAMINATION: US , SOFT TISSUES RIGHT SUPRACLAVICULAR REGION CLINICAL INFORMATION: Mass in the right supraclavicular region COMPARISON: None. TECHNIQUE: High-frequency linear transducer examination with attention to the area ofclinical concern The area of clinical concern in the right supraclavicular region wasexamined with a high-frequency linear transducer. An area of palpableconcern was targeted. FINDINGS: QUALITY: Adequate There is a subtle area of altered echotexture in the superficial tissueswhich attenuates sound and limits assessment of the deeper tissues. Thisappears to disrupt the deep fascial plane of the skin and precludesassessment of the deep muscular fascial planes or any underlying bonystructures. This is difficult to quantify. IMPRESSION: Nonspecific altered echotexture without a discrete measurable mass. The area should be managed on the basis of the physical exam and history. This study does not exclude an aggressive process. -------- FINAL REPORT -------- Dictated By: Wily Ortiz Dictated Date: 05/01/2025 08:11 ET Assigned Physician: Wily Ortiz Reviewed and Electronically Signed By: Wily Ortiz Signed Date: 05/01/2025 08:14 ET Workstation ID: [id number] Transcribed By: Self Edit Transcribed Date: 05/01/2025 08:11 ET us Flynn Hdz DO IMG US PROCEDURES Final Result * US Extremity Nonvascular Limited Left (04/23/2025 10:11 AM EDT) Anatomical Region Laterality Modality Extremity Left Ultrasound 05/01/2025 8:05 AM EDT Impressions 05/01/2025 8:09 AM EDT There is a nonspecific oval soft tissue mass which may be between the skin and the cortex of the olecranon/proximal ulna. There is some internal color signal Correlate with this being in the region of the olecranon bursa. This may require tissue diagnosis. -------- FINAL REPORT -------- Dictated By: Wily Ortiz Dictated Date: 05/01/2025 08:05 ET Assigned Physician: Wily Ortiz Reviewed and Electronically Signed By: Wily Ortiz Signed Date: 05/01/2025 08:09 ET Workstation ID: [id number] Transcribed By: Self Edit Transcribed Date: 05/01/2025 08:05 ET Narrative 05/01/2025 8:09 AM EDT EXAMINATION: US , SOFT TISSUES LEFT ELBOW CLINICAL INFORMATION: Elbow mass. COMPARISON: None. TECHNIQUE: High-frequency linear transducer examination with attention to the area of clinical concern Soft tissue mass dorsally at the level of the elbow was examined with a high-frequency linear transducer. FINDINGS: QUALITY: Adequate There is a mass in the soft tissues dorsally at the level of the elbow. There is a hypoechoic fairly homogeneous oval mass with long axis parallel. This extends to the deep aspect of the skin. The interface with the dermis is sharply defined. There is an abrupt interface with the underlying bone cortex. There is posterior enhancement. There is some internal color signal. No evidence of invasion into adjacent or deeper tissues. 04/23/25-1.7 x 0.6 x 1.3 cm Procedure Note Wily Ortiz MD - 05/01/2025 EXAMINATION: US , SOFT TISSUES LEFT ELBOW CLINICAL INFORMATION: Elbow mass. COMPARISON: None. TECHNIQUE: High-frequency linear transducer examination with attention to the area ofclinical concern Soft tissue mass dorsally at the level of the elbow was examined with ahigh- frequency linear transducer. FINDINGS: QUALITY: Adequate There is a mass in the soft tissues dorsally at the level of the elbow. There is a hypoechoic fairly homogeneous oval mass with long axisparallel. This extends to the deep aspect of the skin. The interface withthe dermis is sharply defined. There is an abrupt interface with theunderlying bone cortex. There is posterior enhancement. There is someinternal color signal. No evidence of invasion into adjacent or deeper tissues. 04/23/25-1.7 x 0.6 x 1.3 cm IMPRESSION: There is a nonspecific oval soft tissue mass which may be between the skinand the cortex of the olecranon/proximal ulna. There is some internalcolor signal Correlate with this being in the region of the olecranon bursa. This may require tissue diagnosis. -------- FINAL REPORT -------- Dictated By: Wily Ortiz Dictated Date: 05/01/2025 08:05 ET Assigned Physician: Wily Ortiz Reviewed and Electronically Signed By: Wily Ortiz Signed Date: 05/01/2025 08:09 ET Workstation ID: [id number] Transcribed By: Self Edit Transcribed Date: 05/01/2025 08:05 ET us Flynn Hdz DO IMG US PROCEDURES Final Result from Last 3 Months Insurance MEDICARE MEDICAID - [place] Care Teams Mining Consultant Relationship Specialty Start Date End Date Zion Pizano DO [address] [place] [phone] PCP - General Internal Medicine 07/25/24
--- OUTSIDE RECORDS SUMMARY | 2025-06-04 20:16 | XMS_ITS | Patient Health Record ---
Author Organization [facility] Address [address] [place] [address] Care Team Providers Care Dramatic Teacher Name Role Phone MIGNON WELLS STAR Primary Care Provider Jaja Merida Unavailable [phone] Allergies No Known Allergies Reason For Referral No Information Medications Medication SIG (Take, Route, Frequency, Duration) Notes Start Date End Date Status Adderall XR 15 MG 1 capsule in the mor joceline Orally Once a day Active Xiidra 5 % INSTILL 1 DROP INTO BOTH EYES TWICE A DAY Ophthalmic; Duration: 90 Active Zanaflex 4MG 1 ORAL at bedtime; Duration: -3 11/24/2011 Active clonazePAM 1 MG (Schedule IV Drug) T ADRY 1/2 TABLET BY MOUTH TWICE A DAY NEEDED AND 1 TABLET BY MOUTH AT BEDTIME Oral; Duration: 30 Active Thrive For Life Womens Active Cymbalta 60 MG 1 capsule Orally Onc e a day; Duration: 30 day(s) Active Norethindrone Acetate 5 MG TAKE 1 TABLET BY MOUTH EVERY DAY FOR 10 DAYS EVERY 3 MONTHS; Duration: 90 Active Social History Tobacco Use: Social History Observation [...] cigarettes a day do you smoke? 6-10 Problems Problem Type SNOMED Code ICD Code Onset Dates Problem Status W/U Status Risk Notes Problem Hyperprolactinemia (362016789) Hyperprolactinemia (E22.1) Active confirmed Problem Secondary amenorrhea (933521414) Secondary amenorrhea (N91.1) Active confirmed Problem Amenorrhea (61293850) Amenorrhea, unspecified (N91.2) Active confirmed Problem Irregular Menstruation (35079939) Other specified irregular menstruation (N92.5) Active confirmed Problem Unspecified menopausal and perimenopausal disorder (N95.9) Active confirmed Problem Menopause (104652652) Menopausal and female climacteric states (N95.1) Active confirmed Problem Depressive disorder (02824141) Depressive disorder, not elsewhere classified (311) Active confirmed Major Problem Muscle pain (54935104) Unspecified myalgia and myositis (729.1) Active confirmed Major Problem Atypical glandular cells on cervical Papanicolaou smear (023110233) Abnormal glandular Papanicolaou smear of cervix (795.00) Active confirmed Diag Problem Atypical squamous cells of undetermined significance on cervical Papanicolaou smear (878645954) Papanicolaou smear of cervix with atypical squamous cells of undetermined significance (ASC-US) (795.01) Active confirmed Major Problem Gynecological examination normal (671244631159081) Routine gynecological examination (V72.31) Active confirmed Major Problem Counseling (873225954) Counseling NOS (V65.40) Active confirmed Diag Plan Of Treatment Pending Test Test Name Order Date Urinalysis 01/19/2024 THIN PREP,HPV,EDISON IF HPV+ (>29YR)(SCRN) 10/22/2017 MM Digital Mammo Screening 10/22/2017 MM Digital Mammo Screening 01/19/2024 MM Digital Mammo Screening 09/04/2020 MM Digital Mammo Screening 11/26/2021 MM Digital Mammo Screening 01/13/2023 Next Appt Details Provider Name:Jaja avalos, 07/05/2025 02:20:00 PM, [address], [address], [place], [address], Insurance Providers Payer Name Payer Address Payer Phone Subscriber Number Group Number Insured Name Patient Relationship to Insured Coverage Start Date Coverage End Date [employer] CLAIM[employer] DEPT [address] [phone] [place] [address] [id number] TEOFILO TOBIAS Self - patient is the insured 3 Medical (General) History Medical History History ICD Code Unspecified abnormal cytological finding s in specimens from cervix uteri R87.619 Major depressive disorder, single episod e, unspecified F32.9 Fibromyalgia M79.7 Atypical squamous cells of u ndetermined significance on cytologic smear of cervix (ASC-US) R87.610 Cervical high risk human papillomavirus (HPV) DNA test positive R87.810 Female infertility, unspecified N97.9 Secondary amenorrhea N91.1 Other specified irregular menstruation N 92.5 Unspecified menopausal and perimenopausa l disorder N95.9 Menopausal and female climacteric states N95.1 Hyperprolactinemia E22.1 Surgical History Surgery Date(Month/Year) Colonoscopy 2016 Right Breast Biopsy 05/2017
== END 2025-06-04 14:51 | disposition home or self-care (01) ==
LOC: HO.NEURO 14:50
PROVIDERS: PCP Internal Medicine; Visit Provider Psychiatry & Neurology Neurology
DX: G40.909 Epilepsy, unspecified, not intractable, without status epilepticus (principal)
CPT/HCPCS: 95816

== ENCOUNTER → 2025-06-04 16:29 | Outpatient (BNV) | payer MEDICARE, MEDICAID, SELFPAY | PROVIDERS: PCP Internal Medicine; Visit Provider Psychiatry & Neurology Neurology | DX: G40.909 Epilepsy, unspecified, not intractable, without status epilepticus (principal) | CPT/HCPCS: 95816 ==